=== PATIENT | male | born 1935 | race Caucasian/White ===

== ENCOUNTER 2016-10-29 10:27 | Outpatient (CLI) | payer MEDICARE ==
[2016-10-29 12:12] LABS: ALT (SGPT) 18 U/L (8-55); AST (SGOT) 17 U/L (5-34); Albumin 4.1 g/dL (3.4-4.8); Alkaline Phosphatase 85 U/L (40-150); Anion Gap 12 mmol/L (10-20); BUN (Urea Nitrogen) 18 mg/dL (8.4-25.7); Bilirubin, Total 0.8 mg/dL (0.2-1.2); Calc. Creatinine Clearance 0 mL/min (70-130); Calcium 9.2 mg/dL (7.8-10.44); Carbon Dioxide 27 mmol/L (23-31); Chloride 101 mmol/L (98-107); Estimated GFR-MDRD 70; Globulin 2.6 g/dL (2.4-3.5); Glucose 96 mg/dL (83-110); Potassium 3.9 mmol/L (3.5-5.1); Protein, Total 6.7 g/dL (5.8-8.1); Sodium 136 mmol/L (136-145)
[2016-10-29 12:13] LABS: #Basophils 0.1 thou/uL (0.0-0.2); #Eosinphils 0.1 thou/uL (0.0-0.7); #Lymphocytes 2.2 thou/uL (1.20-3.40); #Monocytes 0.5 thou/uL (0.11-0.59); #Neutrophils 4.1 thou/uL (1.40-6.50); %Eosinophils 1.5 % (0.0-10.0); %Lymphocytes 30.9 % (21.0-51.0); %Monocytes 7.7 % (0.0-10.0); %Neutrophils 58.9 % (42.0-75.0); Hemoglobin 14.4 g/dL (14.0-18.0); Mean Corpuscular HGB CONC 33.8 g/dL (32.0-36.0); Mean Corpuscular Volume 91.8 fl (80.0-94.0); Mean Platelet Volume 8.8 fL (7.4-10.4); Platelet Count 179 thou/uL (130-400); RBC Distribution Width 11.8 % (11.5-14.5); Red Blood Cell (RBC) Count 4.64 mill/uL (4.70-6.10); White Blood Cell (WBC) Count 6.9 thou/uL (4.8-10.8)
[2016-10-29 12:28] LABS: Thyroid Stimulating Hormone 2.7074 uIU/mL (0.35-4.94); Vitamin D, 25 Hydroxy 28.9 ng/mL (> 30.0)
[2016-10-29 18:22] LABS: Folate (Folic Acid) 11.6 ng/mL (7.0-31.4)
[2016-10-31 07:32] LABS: Antinuclear AB Negative (Negative)
== END 2016-10-29 10:28 | disposition home or self-care (01) ==
LOC: MADLAB 10:27
PROVIDERS: ATTEND Student in an Organized Health Care Education/Training Program
DX: E51.9 Thiamine deficiency, unspecified (principal); E55.9 Vitamin D deficiency, unspecified; E53.8 Deficiency of other specified B group vitamins; E53.1 Pyridoxine deficiency; R41.3 Other amnesia
CPT/HCPCS: 36415; 80053; 82306; 82607; 82746; 84207; 84425; 84443; 85025; 86038; 86592

== ENCOUNTER 2017-09-22 12:47 | Outpatient (CLI) | payer MEDICARE ==
--- NOTE | 2017-09-22 13:20 | RAD ---
LUMBAR SPINE THREE VIEWS: History: Trauma. Pain. Comparison: None. FINDINGS: Three views of the lumbar spine. Five lumbar type vertebral bodies. Vertebral body height is maintain ed. Disc space heights are preserved. Mild osteophyte formation. Atherosclerosis of the aorta is identified. IMPRESSION: Unremarkable lumbar spine three views. POS: [facility]
--- NOTE | 2017-09-22 13:54 | RAD ---
PROCEDURE: PA CHEST AND LEFT RIBS: A total of 4 views. INDICATION: Left chest pain and low back pain. COMPARISON: Comparison is made to a chest film of 08/09/14. Multiple tiny metallic fragments seen within the left chest wall appear unchanged and may represent b ullet fragments. The lung rodriguez are clear with no evidence of infiltrate or vascular congestion. Heart and mediastin um unremarkable with aortic calcification again noted. Review of the left ribs shows evidence of cortical irregularity involving the distal left 10th rib an terolaterally near the costochondral junction. A fracture at this site cannot be excluded. No other evidence of fracture. No other rib lesions seen. IMPRESSION: Question fracture distal left 10th rib. Recommend clinical correlation regarding tenderness at this site. POS: [facility]
== END 2017-09-22 12:48 | disposition home or self-care (01) ==
LOC: MADRAD 12:47
PROVIDERS: ATTEND Family Medicine
DX: M54.42 Lumbago with sciatica, left side (principal); R07.81 Pleurodynia
CPT/HCPCS: 72100

== ENCOUNTER 2020-12-20 | Emergency (ER) | payer MEDICARE ==
[2020-12-20 01:02] LABS: #Basophils 0.1 thou/uL (0.0-0.2); #Lymphocytes 1.4 thou/uL (1.20-3.40); #Neutrophils 13.6 thou/uL (1.40-6.50); %Basophils 0.5 % (0.0-1.0); %Eosinophils 0.1 % (0.0-10.0); %Lymphocytes 8.6 % (21.0-51.0); %Monocytes 6.4 % (0.0-10.0); %Neutrophils 84.4 % (42.0-75.0); Hemoglobin 16.2 g/dL (14.0-18.0); Mean Corpuscular HGB CONC 32.7 g/dL (32.0-36.0); Mean Corpuscular Volume 91.6 fL (78.0-98.0); Mean Platelet Volume 10.6 fL (7.4-10.4); Platelet Count 235 thou/uL (130-400); RBC Distribution Width 11.9 % (11.5-14.5); Red Blood Cell (RBC) Count 5.39 mill/uL (4.70-6.10); White Blood Cell (WBC) Count 16.1 thou/uL (4.8-10.8)
[2020-12-20 01:25] LABS: ALT (SGPT) 13 U/L (8-55); AST (SGOT) 18 U/L (5-34); Albumin 4.2 g/dL (3.4-4.8); Alkaline Phosphatase 97 U/L (40-110); Anion Gap 15 mmol/L (10-20); BUN (Urea Nitrogen) 21 mg/dL (8.4-25.7); Bilirubin, Total 1.2 mg/dL (0.2-1.2); CK (CPK) 95 U/L (30-200); CRP (Inflammatory) 0.57 mg/dL (= or < 0.5); Calc. Creatinine Clearance 0 mL/min (70-130); Calcium 9.4 mg/dL (7.8-10.44); Carbon Dioxide 18 mmol/L (23-31); Chloride 107 mmol/L (98-107); Globulin 3.3 g/dL (2.4-3.5); Glucose 159 mg/dL (83-110); Potassium 4.3 mmol/L (3.5-5.1); Protein, Total 7.5 g/dL (5.8-8.1); Sodium 136 mmol/L (136-145)
[2020-12-20 02:17] LABS: Bilirubin Negative (Negative); Blood, Urine Moderate (Negative); Clarity Clear (Clear); Glucose, Urine (Dipstick) 100 mg/dL (Negative); Ketone, Urine 15 mg/dL (Negative); Leukocyte Negative (Negative); Nitrite Negative (Negative); Protein, Urine (Dipstick) > or equal to 300 mg/dL (Neg-Trace); Urobilinogen 0.2 mg/dL (Less than 2); pH, Urine 5.5 (5.0-9.0)
[2020-12-20 02:20] LABS: Specific Gravity, Urine 1.025 (1.002-1.036)
[2020-12-20 02:23] LABS: Bacteria/HPF Rare-Few HPF (None Seen); Mucous/LPF 2+ LPF (<2+); Squamous Epithelial 0-3 HPF (0-3); WBC/HPF 0-3 HPF (0-3)
[2020-12-20] MEDS ORDERED: Aspirin Chewable 81 MG TAB ONE (03:21)
[2020-12-20] MEDS ORDERED: Cefepime 2 GM VIAL ONE ×2 (03:21→12:07)
[2020-12-20] MEDS ORDERED: metroNIDAZOLE 500 MG/100 ML BAG ONE ×2 (03:55→12:07)
[2020-12-20] MEDS ORDERED: Iopamidol 370 76% 100 ML VIAL ONE (11:26)
[2020-12-20] MEDS ORDERED: Sodium Chloride 0.9% 100 ML ONE (12:07)
== END 2020-12-20 13:22 | disposition short-term general hospital (02) ==
LOC: MADERS
DX: R14.0 Abdominal distension (gaseous) (principal); R10.9 Unspecified abdominal pain; N40.1 Benign prostatic hyperplasia with lower urinary tract symptoms; R79.89 Other specified abnormal findings of blood chemistry; R33.8 Other retention of urine; R39.11 Hesitancy of micturition; R53.1 Weakness; R41.82 Altered mental status, unspecified; R53.83 Other fatigue
CPT/HCPCS: 36415; 51702; 74177; 80053; 81003; 81015; 82150; 82550; 82553; 83690; 84484; 85025; 86140; 93005; 96365; 96366; 96367; J0692; J3490; Q9967

== ENCOUNTER 2021-01-13 13:18 | Emergency (ER) | payer MEDICARE ==
[2021-01-13 13:55] LABS: Bilirubin Negative (Negative); Blood, Urine Negative (Negative); Clarity Slightly Cloudy (Clear); Glucose, Urine (Dipstick) Negative (Negative); Ketone, Urine Trace mg/dL (Negative); Leukocyte Negative (Negative); Nitrite Positive (Negative); Protein, Urine (Dipstick) Trace mg/dL (Neg-Trace); Urobilinogen 0.2 mg/dL (Less than 2)
[2021-01-13 14:03] LABS: Bacteria/HPF 4+ HPF (None Seen); RBC/HPF 0-3 HPF (0-3); Squamous Epithelial None Seen HPF (0-3); WBC/HPF 0-3 HPF (0-3)
== END 2021-01-13 14:55 | disposition home or self-care (01) ==
LOC: MADERS 13:18
DX: N40.1 Benign prostatic hyperplasia with lower urinary tract symptoms (principal); R33.8 Other retention of urine; N39.0 Urinary tract infection, site not specified; Z46.6 Encounter for fitting and adjustment of urinary device; Z79.82 Long term (current) use of aspirin; Z79.899 Other long term (current) drug therapy
CPT/HCPCS: 51702; 81003; 81015; 87077; 87086; 87186

== ENCOUNTER 2021-10-12 09:03 | Emergency (ER) | payer MEDICARE ==
[2021-10-12 09:40] LABS: Bilirubin Small (Negative); Blood, Urine Moderate (Negative); Clarity Cloudy (Clear); Glucose, Urine (Dipstick) Negative (Negative); Ketone, Urine Trace mg/dL (Negative); Leukocyte Small (Negative); Nitrite Positive (Negative); Protein, Urine (Dipstick) 100 mg/dL (Neg-Trace); Specific Gravity, Urine 1.025 (1.002-1.036); Urobilinogen 0.2 mg/dL (Less than 2); pH, Urine 5.5 (5.0-9.0)
[2021-10-12 10:30] LABS: Bilirubin Negative (Negative); Blood, Urine Moderate (Negative); Clarity Cloudy (Clear); Glucose, Urine (Dipstick) Negative (Negative); Ketone, Urine Negative (Negative); Leukocyte Small (Negative); Nitrite Positive (Negative); Protein, Urine (Dipstick) 100 mg/dL (Neg-Trace); Specific Gravity, Urine 1.025 (1.005-1.030); Urobilinogen 0.2 mg/dL (Less than 2)
[2021-10-12 10:33] LABS: Squamous Epithelial 0-3 HPF (0-3)
[2021-10-12 10:34] LABS: Bacteria/HPF 3+ HPF (None Seen)
== END 2021-10-12 10:44 | disposition home or self-care (01) ==
LOC: MADERS 09:03
DX: N39.0 Urinary tract infection, site not specified (principal)
CPT/HCPCS: 81003; 81015; 87086

== ENCOUNTER 2022-03-06 13:48 | Emergency (ER) | payer MEDICARE ==
[~2022-03-06 13:48] MED LIST: Iopamidol 370 76% 125 ML VIAL FS ONE; Lactated Ringer's 1,000 ML BAG ONE; Norepinephrine 4 MG/4 ML VIAL ONE
[2022-03-06] MEDS ORDERED: Ondansetron PF 4 MG/2 ML Vial ONE (14:31)
[2022-03-06 14:54] LABS: Bicarbonate (HCO3v) 22.4 mmol/L (22.0-28.0); CO2 Tension (PvCO2) 44.4 mmHg (42.0-51.0); Calcium, Ionized 1.09 mmol/L (1.15-1.33); Chloride 106 mmol/L (98-107); Hemoglobin - Calc 14.6 g/dL (14.0-18.0); Potassium 2.8 mmol/L (3.5-5.1); Sodium 142 mmol/L (138-145); T. Carbon Dioxide 23.7 mmol/L (22.0-28.0); vO2 Saturation-calc 60.5 % (60.0-85.0)
[2022-03-06 14:59] LABS: Anisocytosis SLIGHT = 6-15 cells (100X) (0-5/hpf); Band 18 % (5-11); Hemoglobin 13.4 g/dL (14.0-18.0); Lymphocytes 20 % (21-51); MDiff Complete? YES; Mean Corpuscular HGB CONC 32.1 g/dL (32.0-36.0); Mean Corpuscular Hemoglobin 29.3 pg (27.0-31.0); Mean Corpuscular Volume 91.1 fL (78.0-98.0); Mean Platelet Volume 10.2 fL (7.4-10.4); Monocytes 2 % (0-10); Neutrophil 60 % (42-75); Platelet Count 165 thou/uL (130-400); Platelet Morphology Comment Appears Adequate; RBC Distribution Width 11.8 % (11.5-14.5); Red Blood Cell (RBC) Count 4.58 mill/uL (4.70-6.10); White Blood Cell (WBC) Count 3.5 thou/uL (4.8-10.8)
[2022-03-06 15:06] LABS: ALT (SGPT) 44 U/L (8-55); AST (SGOT) 70 U/L (5-34); Albumin 3.9 g/dL (3.4-4.8); Alkaline Phosphatase 123 U/L (40-110); Anion Gap 19 mmol/L (10-20); BUN (Urea Nitrogen) 24 mg/dL (8.4-25.7); Bilirubin, Total 1.3 mg/dL (0.2-1.2); CK (CPK) 51 U/L (30-200); Calc. Creatinine Clearance 0 mL/min (70-130); Calcium 9.2 mg/dL (7.8-10.44); Carbon Dioxide 20 mmol/L (23-31); Chloride 103 mmol/L (98-107); Estimated GFR 42; Glucose 126 mg/dL (83-110); Lipase 26 U/L (8-78); Magnesium 1.4 mg/dL (1.6-2.6); Potassium 3.1 mmol/L (3.5-5.1); Protein, Total 6.9 g/dL (5.8-8.1); Sodium 139 mmol/L (136-145)
[2022-03-06 15:07] LABS: INR-International Normal Ratio 1.2; Prothrombin Time 15.1 sec (12.0-14.7)
[2022-03-06] MEDS ORDERED: Norepinephrine 4 MG/4 ML VIAL ONE (15:09)
[2022-03-06] MEDS ORDERED: Magnesium 2 GM/50 ML BAG (IN WATER) ONE (15:10)
[2022-03-06 15:55] LABS: SARS-CoV-2 NAA Rapid Test Not Detected (NotDetected)
[2022-03-06] MEDS ORDERED: Sodium Chloride 0.9% 100 ML ONE (16:43)
[2022-03-06] MEDS ORDERED: Sodium Chloride 0.9% 250 ML 500 ML ONE (16:43)
[2022-03-06] MEDS ORDERED: Cefepime 2 GM VIAL ONE (16:43)
[2022-03-06] MEDS ORDERED: NS 0.9% w/ 40 MEQ KCL 1,000 ML IV ONE (16:46)
[2022-03-06] MEDS ORDERED: Enalaprilat Dihydrate 1.25 MG/ML VIAL ONE (16:49)
[2022-03-06] MEDS ORDERED: Ibuprofen 600 MG TAB ONE (16:53)
[2022-03-06] MEDS ORDERED: Ibuprofen 200 MG TAB ONE (16:54)
[2022-03-06] MEDS ORDERED: Vasopressin 20 UNIT, Admixture Fee 1 EACH in Sodium Chloride 0.9% 50 ML IV SCH (17:00)
[2022-03-06] MEDS ORDERED: Lactated Ringer's 1,000 ML IV SCH (17:00)
[2022-03-06] MEDS ORDERED: Pantoprazole 40 MG VIAL ONE (17:27)
[2022-03-06 17:32] LABS: Blood, Urine Large (Negative); Clarity Cloudy (Clear); Glucose, Urine (Dipstick) Negative (Negative); Ketone, Urine Negative (Negative); Leukocyte Trace (Negative); pH, Urine 6.5 (5.0-9.0)
[2022-03-06 17:38] LABS: Nitrite Unable to Interpret (Negative); Protein, Urine (Dipstick) Unable to Interpret mg/dL (Neg-Trace)
[2022-03-06 17:39] LABS: Bilirubin Unable to Interpret (Negative); Urobilinogen UNABLE TO INTERPRET mg/dL (Less than 2)
[2022-03-06 17:40] LABS: Bacteria/HPF 1+ HPF (None Seen); RBC/HPF Greater than 50 HPF (0-3)
[2022-03-06] MEDS ORDERED: Hydrocortisone Sod Succ/PF 100 mg/2 ml Vial ONE (17:50)
[2022-03-06] MEDS ORDERED: Water For Inject, Bacteriostat 30 ML ONE (17:52)
[2022-03-06 18:13] LABS: Lactic Acid 11.9 mmol/L (0.5-2.2)
== END 2022-03-06 17:56 | disposition short-term general hospital (02) ==
LOC: MADERS 13:48
DX: J69.0 Pneumonitis due to inhalation of food and vomit (principal); N39.0 Urinary tract infection, site not specified; R65.21 Severe sepsis with septic shock; K92.2 Gastrointestinal hemorrhage, unspecified; L02.211 Cutaneous abscess of abdominal wall; E87.6 Hypokalemia; E83.42 Hypomagnesemia; R31.9 Hematuria, unspecified; F03.90 Unspecified dementia, unspecified severity, without behavioral disturbance, psychotic disturbance, mood disturbance, and anxiety; Z20.822 Contact with and (suspected) exposure to COVID-19
CPT/HCPCS: 0240U; 36556; 70450; 71045; 71275; 74174; 74177; 82330; 82435; 82533; 82550; 82803; 82962; 83605; 83690; 83735; 83880; 84132; 84295; 84439; 84484; 85014; 85018; 85610; 85730; 86140; 86850; 86900; 86901; 87040; 87077; 87086; 87149 ×2; 87186; 93005; 94760; 96365; 96367; 96368; 96374; 96375; 99285; 36416; 80053; 81003; 81015; 82274; 84443; 85025; C9113; J0692; J1720; J2405; J3370; J3475; J3480; J3490; J7050; J7070; J7120; Q9967

== ENCOUNTER 2022-03-15 13:09 | Inpatient (IN) | payer MEDICARE ==
[2022-03-15 15:52] VITALS: BMI 23.6
[2022-03-15 18:43] LABS: Bilirubin Negative (Negative); Blood, Urine Trace (Negative); Clarity Clear (Clear); Glucose, Urine (Dipstick) Negative (Negative); Ketone, Urine 15 mg/dL (Negative); Leukocyte Negative (Negative); Nitrite Negative (Negative); Protein, Urine (Dipstick) 30 mg/dL (Neg-Trace); Urobilinogen 0.2 mg/dL (Less than 2)
[2022-03-15 19:04] LABS: Bacteria/HPF Rare-Few HPF (None Seen); Squamous Epithelial 0-3 HPF (0-3); WBC/HPF 0-3 HPF (0-3)
[2022-03-15] MEDS: Enoxaparin Sodium 40 MG/0.4 ML SYRINGE SC SCH (21:14)
[2022-03-15] MEDS: Atorvastatin Calcium 40 MG TAB PO SCH (21:14)
[2022-03-15] MEDS: Donepezil HCl 10 MG TAB PO SCH (21:14)
[2022-03-16] MEDS: Acyclovir 200 mg Capsule PO SCH ×6 (00:57→23:17)
[2022-03-16 05:48] LABS: Band 5 % (5-11); Eosinophils 1 % (0-10); Lymphocytes 36 % (21-51); MDiff Complete? YES; Mean Corpuscular HGB CONC 33.3 g/dL (32.0-36.0); Mean Corpuscular Hemoglobin 29.9 pg (27.0-31.0); Mean Corpuscular Volume 89.9 fL (78.0-98.0); Mean Platelet Volume 12.5 fL (7.4-10.4); Monocytes 6 % (0-10); Neutrophil 52 % (42-75); Platelet Count 190 thou/uL (130-400); Platelet Morphology Comment Appears Adequate; RBC Distribution Width 12.4 % (11.5-14.5); Red Blood Cell (RBC) Count 3.33 mill/uL (4.70-6.10); White Blood Cell (WBC) Count 8.2 thou/uL (4.8-10.8)
[2022-03-16 06:05] LABS: ALT (SGPT) 119 U/L (8-55); AST (SGOT) 51 U/L (5-34); Albumin 2.7 g/dL (3.4-4.8); Alkaline Phosphatase 189 U/L (40-110); Anion Gap 13 mmol/L (10-20); BUN (Urea Nitrogen) 21 mg/dL (8.4-25.7); Bilirubin, Total 1.3 mg/dL (0.2-1.2); Calc. Creatinine Clearance 63 mL/min (70-130); Carbon Dioxide 23 mmol/L (23-31); Chloride 110 mmol/L (98-107); Estimated GFR 84; Globulin 2.5 g/dL (2.4-3.5); Glucose 88 mg/dL (83-110); Potassium 3.7 mmol/L (3.5-5.1); Protein, Total 5.2 g/dL (5.8-8.1); Sodium 142 mmol/L (136-145)
[2022-03-16] MEDS: Amlodipine 5 MG TAB PO SCH (08:36)
[2022-03-16] MEDS: Finasteride 5 MG TAB PO SCH (08:36)
[2022-03-16] MEDS: Famotidine 20 MG TAB PO SCH (08:37)
[2022-03-16] MEDS: Aspirin Chewable 81 MG TAB PO SCH (08:37)
[2022-03-16] MEDS: Donepezil HCl 10 MG TAB PO SCH (20:03)
[2022-03-16] MEDS: Atorvastatin Calcium 40 MG TAB PO SCH (20:03)
[2022-03-16] MEDS: Enoxaparin Sodium 40 MG/0.4 ML SYRINGE SC SCH (20:03)
[2022-03-17] MEDS: Aspirin Chewable 81 MG TAB PO SCH (08:11)
[2022-03-17] MEDS: Amlodipine 5 MG TAB PO SCH (08:11)
[2022-03-17] MEDS: Famotidine 20 MG TAB PO SCH (08:11)
[2022-03-17] MEDS: Finasteride 5 MG TAB PO SCH (08:11)
[2022-03-17] MEDS: Acyclovir 200 mg Capsule PO SCH ×5 (08:11→23:17)
[2022-03-17] MEDS: Atorvastatin Calcium 40 MG TAB PO SCH (20:15)
[2022-03-17] MEDS: Enoxaparin Sodium 40 MG/0.4 ML SYRINGE SC SCH (20:16)
[2022-03-17] MEDS: Donepezil HCl 10 MG TAB PO SCH (20:16)
[2022-03-18] MEDS: Finasteride 5 MG TAB PO SCH (08:27)
[2022-03-18] MEDS: Acyclovir 200 mg Capsule PO SCH ×5 (08:27→23:31)
[2022-03-18] MEDS: Amlodipine 5 MG TAB PO SCH (08:27)
[2022-03-18] MEDS: Famotidine 20 MG TAB PO SCH (08:27)
[2022-03-18] MEDS: Aspirin Chewable 81 MG TAB PO SCH (08:27)
[2022-03-18] MEDS: Atorvastatin Calcium 40 MG TAB PO SCH (20:18)
[2022-03-18] MEDS: Enoxaparin Sodium 40 MG/0.4 ML SYRINGE SC SCH (20:18)
[2022-03-18] MEDS: Donepezil HCl 10 MG TAB PO SCH (20:18)
[2022-03-19] MEDS: Amlodipine 5 MG TAB PO SCH (08:05)
[2022-03-19] MEDS: Acyclovir 200 mg Capsule PO SCH ×5 (08:06→23:56)
[2022-03-19] MEDS: Finasteride 5 MG TAB PO SCH (08:06)
[2022-03-19] MEDS: Aspirin Chewable 81 MG TAB PO SCH (08:06)
[2022-03-19] MEDS: Famotidine 20 MG TAB PO SCH (08:06)
[2022-03-19] MEDS: Mirtazapine 15 MG TAB PO SCH (21:17)
[2022-03-19] MEDS: Atorvastatin Calcium 40 MG TAB PO SCH (21:17)
[2022-03-19] MEDS: Enoxaparin Sodium 40 MG/0.4 ML SYRINGE SC SCH (21:18)
[2022-03-19] MEDS: Donepezil HCl 10 MG TAB PO SCH (21:18)
[2022-03-20] MEDS: Amlodipine 5 MG TAB PO SCH (08:33)
[2022-03-20] MEDS: Finasteride 5 MG TAB PO SCH (08:34)
[2022-03-20] MEDS: Famotidine 20 MG TAB PO SCH (08:34)
[2022-03-20] MEDS: Aspirin Chewable 81 MG TAB PO SCH (08:34)
[2022-03-20] MEDS: Acyclovir 200 mg Capsule PO SCH ×4 (08:34→21:59)
[2022-03-20] MEDS: Atorvastatin Calcium 40 MG TAB PO SCH (21:58)
[2022-03-20] MEDS: Enoxaparin Sodium 40 MG/0.4 ML SYRINGE SC SCH (21:58)
[2022-03-20] MEDS: Mirtazapine 15 MG TAB PO SCH (21:58)
[2022-03-20] MEDS: Donepezil HCl 10 MG TAB PO SCH (21:58)
[2022-03-21] MEDS: Acyclovir 200 mg Capsule PO SCH ×6 (01:41→20:43)
[2022-03-21] MEDS: Finasteride 5 MG TAB PO SCH (08:52)
[2022-03-21] MEDS: Amlodipine 5 MG TAB PO SCH (08:52)
[2022-03-21] MEDS: Famotidine 20 MG TAB PO SCH (08:52)
[2022-03-21] MEDS: Aspirin Chewable 81 MG TAB PO SCH (08:52)
[2022-03-21] MEDS: Donepezil HCl 10 MG TAB PO SCH (20:42)
[2022-03-21] MEDS: Atorvastatin Calcium 40 MG TAB PO SCH (20:42)
[2022-03-21] MEDS: Enoxaparin Sodium 40 MG/0.4 ML SYRINGE SC SCH (20:42)
[2022-03-21] MEDS: Mirtazapine 15 MG TAB PO SCH (20:43)
[2022-03-22 07:44] LABS: #Basophils 0.1 thou/uL (0.0-0.2); #Eosinphils 0.1 thou/uL (0.0-0.7); #Lymphocytes 2.8 thou/uL (1.20-3.40); #Monocytes 0.7 thou/uL (0.11-0.59); #Neutrophils 3.2 thou/uL (1.40-6.50); %Basophils 1.1 % (0.0-1.0); %Eosinophils 0.9 % (0.0-10.0); %Lymphocytes 41.3 % (21.0-51.0); %Monocytes 10.5 % (0.0-10.0); %Neutrophils 46.2 % (42.0-75.0); Hemoglobin 9.6 g/dL (14.0-18.0); Mean Corpuscular HGB CONC 32.5 g/dL (32.0-36.0); Mean Corpuscular Hemoglobin 29.7 pg (27.0-31.0); Mean Corpuscular Volume 91.5 fL (78.0-98.0); Mean Platelet Volume 10.7 fL (7.4-10.4); Platelet Count 345 thou/uL (130-400); RBC Distribution Width 12.6 % (11.5-14.5); Red Blood Cell (RBC) Count 3.24 mill/uL (4.70-6.10); White Blood Cell (WBC) Count 6.9 thou/uL (4.8-10.8)
[2022-03-22] MEDS: Amlodipine 5 MG TAB PO SCH (09:42)
[2022-03-22] MEDS: Finasteride 5 MG TAB PO SCH (09:42)
[2022-03-22] MEDS: Famotidine 20 MG TAB PO SCH (09:42)
[2022-03-22] MEDS: Aspirin Chewable 81 MG TAB PO SCH (09:42)
[2022-03-22] MEDS: Acyclovir 200 mg Capsule PO SCH ×4 (09:42→21:29)
[2022-03-22] MEDS ORDERED: Dextrose 50% Abboject 50 ML SYRINGE IVP PRN (09:45)
[2022-03-22] MEDS ORDERED: Dextrose 5% in Water 1,000 ML IV PRN (09:45)
[2022-03-22] MEDS ORDERED: HumaLOG 300 UNITS/3 ML VIAL SC PRN ×2 (09:45)
[2022-03-22] MEDS: Enoxaparin Sodium 40 MG/0.4 ML SYRINGE SC SCH (21:28)
[2022-03-22] MEDS: Atorvastatin Calcium 40 MG TAB PO SCH (21:29)
[2022-03-22] MEDS: Donepezil HCl 10 MG TAB PO SCH (21:29)
[2022-03-22] MEDS: Mirtazapine 15 MG TAB PO SCH (21:29)
[2022-03-23] MEDS: Acyclovir 200 mg Capsule PO SCH (00:21)
[2022-03-23] MEDS: Aspirin Chewable 81 MG TAB PO SCH (08:29)
[2022-03-23] MEDS: Famotidine 20 MG TAB PO SCH (08:29)
[2022-03-23] MEDS: Finasteride 5 MG TAB PO SCH (08:29)
[2022-03-23] MEDS: Amlodipine 5 MG TAB PO SCH (08:29)
[2022-03-23] MEDS: Acetaminophen 325 MG TAB PO PRN (10:45)
[2022-03-23] MEDS: Atorvastatin Calcium 40 MG TAB PO SCH (20:51)
[2022-03-23] MEDS: Mirtazapine 15 MG TAB PO SCH (20:51)
[2022-03-23] MEDS: Donepezil HCl 10 MG TAB PO SCH (20:51)
[2022-03-23] MEDS: Enoxaparin Sodium 40 MG/0.4 ML SYRINGE SC SCH (20:52)
[2022-03-24] MEDS: Aspirin Chewable 81 MG TAB PO SCH (08:57)
[2022-03-24] MEDS: Finasteride 5 MG TAB PO SCH (08:57)
[2022-03-24] MEDS: Famotidine 20 MG TAB PO SCH (08:57)
[2022-03-24] MEDS: Acetaminophen 325 MG TAB PO PRN (08:57)
[2022-03-24] MEDS: Amlodipine 5 MG TAB PO SCH (09:05)
[2022-03-24] MEDS: Mirtazapine 15 MG TAB PO SCH (21:27)
[2022-03-24] MEDS: Donepezil HCl 10 MG TAB PO SCH (21:27)
[2022-03-24] MEDS: Enoxaparin Sodium 40 MG/0.4 ML SYRINGE SC SCH (21:27)
[2022-03-24] MEDS: Atorvastatin Calcium 40 MG TAB PO SCH (21:27)
[2022-03-25] MEDS: Finasteride 5 MG TAB PO SCH (08:39)
[2022-03-25] MEDS: Aspirin Chewable 81 MG TAB PO SCH (08:40)
[2022-03-25] MEDS: Amlodipine 5 MG TAB PO SCH (08:40)
[2022-03-25] MEDS: Famotidine 20 MG TAB PO SCH (08:45)
[2022-03-25] MEDS: Donepezil HCl 10 MG TAB PO SCH (21:26)
[2022-03-25] MEDS: Mirtazapine 15 MG TAB PO SCH (21:26)
[2022-03-25] MEDS: Enoxaparin Sodium 40 MG/0.4 ML SYRINGE SC SCH (21:28)
[2022-03-25] MEDS: Atorvastatin Calcium 40 MG TAB PO SCH (21:29)
[2022-03-26] MEDS: Famotidine 20 MG TAB PO SCH (08:27)
[2022-03-26] MEDS: Finasteride 5 MG TAB PO SCH (08:27)
[2022-03-26] MEDS: Aspirin Chewable 81 MG TAB PO SCH (08:27)
[2022-03-26] MEDS: Amlodipine 5 MG TAB PO SCH (08:27)
[2022-03-26] MEDS ORDERED: Milk Of Magnesia 30 ML UDCUP PO SCH (19:45)
[2022-03-26] MEDS: Mirtazapine 15 MG TAB PO SCH (20:40)
[2022-03-26] MEDS: Donepezil HCl 10 MG TAB PO SCH (20:40)
[2022-03-26] MEDS: Atorvastatin Calcium 40 MG TAB PO SCH (20:40)
[2022-03-26] MEDS: Melatonin 3 MG TAB PO PRN (20:41)
[2022-03-26] MEDS: Enoxaparin Sodium 40 MG/0.4 ML SYRINGE SC SCH (20:42)
[2022-03-26] MEDS: Nystatin Cream 15 GM TUBE TOP SCH (20:42)
[2022-03-27] MEDS: Amlodipine 5 MG TAB PO SCH (09:00)
[2022-03-27] MEDS: Famotidine 20 MG TAB PO SCH (09:00)
[2022-03-27] MEDS: Finasteride 5 MG TAB PO SCH (09:00)
[2022-03-27] MEDS: Docusate 100 MG CAP PO SCH (09:00)
[2022-03-27] MEDS: Aspirin Chewable 81 MG TAB PO SCH (09:00)
[2022-03-27] MEDS: Nystatin Cream 15 GM TUBE TOP SCH ×2 (09:07→21:13)
[2022-03-27] MEDS: Enoxaparin Sodium 40 MG/0.4 ML SYRINGE SC SCH (21:13)
[2022-03-27] MEDS: Mirtazapine 15 MG TAB PO SCH (21:14)
[2022-03-27] MEDS: Atorvastatin Calcium 40 MG TAB PO SCH (21:14)
[2022-03-27] MEDS: Donepezil HCl 10 MG TAB PO SCH (21:14)
[2022-03-28] MEDS: Aspirin Chewable 81 MG TAB PO SCH (08:15)
[2022-03-28] MEDS: Amlodipine 5 MG TAB PO SCH (08:15)
[2022-03-28] MEDS: Finasteride 5 MG TAB PO SCH (08:15)
[2022-03-28] MEDS: Famotidine 20 MG TAB PO SCH (08:15)
[2022-03-28] MEDS: Nystatin Cream 15 GM TUBE TOP SCH ×2 (08:16→21:07)
[2022-03-28] MEDS: Docusate 100 MG CAP PO SCH (08:16)
[2022-03-28] MEDS: Donepezil HCl 10 MG TAB PO SCH (21:06)
[2022-03-28] MEDS: Melatonin 3 MG TAB PO PRN (21:06)
[2022-03-28] MEDS: Enoxaparin Sodium 40 MG/0.4 ML SYRINGE SC SCH (21:06)
[2022-03-28] MEDS: Atorvastatin Calcium 40 MG TAB PO SCH (21:06)
[2022-03-28] MEDS: Mirtazapine 15 MG TAB PO SCH (21:06)
[2022-03-29] MEDS: Finasteride 5 MG TAB PO SCH (08:05)
[2022-03-29] MEDS: Amlodipine 5 MG TAB PO SCH (08:06)
[2022-03-29] MEDS: Docusate 100 MG CAP PO SCH (08:06)
[2022-03-29] MEDS: Aspirin Chewable 81 MG TAB PO SCH (08:06)
[2022-03-29] MEDS: Milk Of Magnesia 30 ML UDCUP PO PRN (08:06)
[2022-03-29] MEDS: Famotidine 20 MG TAB PO SCH (08:06)
[2022-03-29] MEDS: Nystatin Cream 15 GM TUBE TOP SCH ×2 (08:09→21:35)
[2022-03-29] MEDS ORDERED: Polyethylene Glycol 3350 17 GM Packet PO PRN (18:29)
[2022-03-29] MEDS ORDERED: Lantiseptic Ointment 130 GM JAR TOP PRN (20:20)
[2022-03-29] MEDS: Enoxaparin Sodium 40 MG/0.4 ML SYRINGE SC SCH (21:23)
[2022-03-29] MEDS: Mirtazapine 15 MG TAB PO SCH (21:24)
[2022-03-29] MEDS: Melatonin 3 MG TAB PO PRN (21:25)
[2022-03-29] MEDS: Donepezil HCl 10 MG TAB PO SCH (21:25)
[2022-03-29] MEDS: Atorvastatin Calcium 40 MG TAB PO SCH (21:25)
[2022-03-30] MEDS: Milk Of Magnesia 30 ML UDCUP PO PRN (08:28)
[2022-03-30] MEDS: Finasteride 5 MG TAB PO SCH (08:28)
[2022-03-30] MEDS: Nystatin Cream 15 GM TUBE TOP SCH ×2 (08:28→21:05)
[2022-03-30] MEDS: Famotidine 20 MG TAB PO SCH (08:28)
[2022-03-30] MEDS: Amlodipine 5 MG TAB PO SCH (08:28)
[2022-03-30] MEDS: Docusate 100 MG CAP PO SCH (08:28)
[2022-03-30] MEDS: Aspirin Chewable 81 MG TAB PO SCH (08:28)
[2022-03-30] MEDS: Atorvastatin Calcium 40 MG TAB PO SCH (21:02)
[2022-03-30] MEDS: Mirtazapine 15 MG TAB PO SCH (21:02)
[2022-03-30] MEDS: Donepezil HCl 10 MG TAB PO SCH (21:03)
[2022-03-30] MEDS: Enoxaparin Sodium 40 MG/0.4 ML SYRINGE SC SCH (21:03)
[2022-03-31] MEDS: Finasteride 5 MG TAB PO SCH (08:39)
[2022-03-31] MEDS: Docusate 100 MG CAP PO SCH (08:39)
[2022-03-31] MEDS: Amlodipine 5 MG TAB PO SCH (08:39)
[2022-03-31] MEDS: Aspirin Chewable 81 MG TAB PO SCH (08:39)
[2022-03-31] MEDS: Famotidine 20 MG TAB PO SCH (08:39)
[2022-03-31] MEDS: Nystatin Cream 15 GM TUBE TOP SCH ×2 (08:40→21:50)
[2022-03-31] MEDS: Enoxaparin Sodium 40 MG/0.4 ML SYRINGE SC SCH (21:49)
[2022-03-31] MEDS: Donepezil HCl 10 MG TAB PO SCH (21:49)
[2022-03-31] MEDS: Mirtazapine 15 MG TAB PO SCH (21:49)
[2022-03-31] MEDS: Atorvastatin Calcium 40 MG TAB PO SCH (21:49)
[2022-04-01 05:19] LABS: #Basophils 0.1 thou/uL (0.0-0.2); #Eosinphils 0.6 thou/uL (0.0-0.7); #Lymphocytes 2.8 thou/uL (1.20-3.40); #Monocytes 0.9 thou/uL (0.11-0.59); #Neutrophils 4.1 thou/uL (1.40-6.50); %Eosinophils 6.9 % (0.0-10.0); %Lymphocytes 32.8 % (21.0-51.0); %Monocytes 10.8 % (0.0-10.0); %Neutrophils 48.5 % (42.0-75.0); Hemoglobin 10.8 g/dL (14.0-18.0); Mean Corpuscular HGB CONC 33.4 g/dL (32.0-36.0); Mean Corpuscular Hemoglobin 31.3 pg (27.0-31.0); Mean Corpuscular Volume 93.7 fL (78.0-98.0); Mean Platelet Volume 10.4 fL (7.4-10.4); Platelet Count 207 thou/uL (130-400); RBC Distribution Width 12.9 % (11.5-14.5); Red Blood Cell (RBC) Count 3.44 mill/uL (4.70-6.10); White Blood Cell (WBC) Count 8.5 thou/uL (4.8-10.8)
[2022-04-01 05:41] LABS: ALT (SGPT) 27 U/L (8-55); AST (SGOT) 20 U/L (5-34); Albumin 3.2 g/dL (3.4-4.8); Alkaline Phosphatase 100 U/L (40-110); Anion Gap 13 mmol/L (10-20); BUN (Urea Nitrogen) 19 mg/dL (8.4-25.7); Bilirubin, Total 0.5 mg/dL (0.2-1.2); Calc. Creatinine Clearance 60 mL/min (70-130); Calcium 8.7 mg/dL (7.8-10.44); Carbon Dioxide 22 mmol/L (23-31); Chloride 108 mmol/L (98-107); Estimated GFR 84; Glucose 88 mg/dL (83-110); Potassium 3.9 mmol/L (3.5-5.1); Protein, Total 6.2 g/dL (5.8-8.1); Sodium 139 mmol/L (136-145)
[2022-04-01] MEDS: Amlodipine 5 MG TAB PO SCH (08:20)
[2022-04-01] MEDS: Finasteride 5 MG TAB PO SCH (08:20)
[2022-04-01] MEDS: Aspirin Chewable 81 MG TAB PO SCH (08:20)
[2022-04-01] MEDS: Docusate 100 MG CAP PO SCH (08:20)
[2022-04-01] MEDS: Famotidine 20 MG TAB PO SCH (08:20)
[2022-04-01] MEDS: Nystatin Cream 15 GM TUBE TOP SCH ×2 (08:21→20:25)
[2022-04-01] MEDS: Donepezil HCl 10 MG TAB PO SCH (20:24)
[2022-04-01] MEDS: Mirtazapine 15 MG TAB PO SCH (20:24)
[2022-04-01] MEDS: Enoxaparin Sodium 40 MG/0.4 ML SYRINGE SC SCH (20:24)
[2022-04-01] MEDS: Atorvastatin Calcium 40 MG TAB PO SCH (20:24)
[2022-04-02] MEDS: Amlodipine 5 MG TAB PO SCH (09:14)
[2022-04-02] MEDS: Aspirin Chewable 81 MG TAB PO SCH (09:15)
[2022-04-02] MEDS: Finasteride 5 MG TAB PO SCH (09:15)
[2022-04-02] MEDS: Docusate 100 MG CAP PO SCH (09:15)
[2022-04-02 09:16] VITALS: BP 130/80
[2022-04-02] MEDS: Famotidine 20 MG TAB PO SCH (09:16)
[2022-04-02] MEDS: Nystatin Cream 15 GM TUBE TOP SCH (09:16)
[2022-04-02 09:45] VITALS: TEMP 98
== END 2022-04-02 16:25 | disposition home health service (06) | DRG 948 ==
LOC: MADMS 14:17
PROVIDERS: ADMIT Family Medicine; ATTEND Family Medicine
DX: R53.81 Other malaise (principal); R53.1 Weakness; Z20.822 Contact with and (suspected) exposure to COVID-19; I10 Essential (primary) hypertension; I48.91 Unspecified atrial fibrillation; N40.1 Benign prostatic hyperplasia with lower urinary tract symptoms; K80.20 Calculus of gallbladder without cholecystitis without obstruction; R33.8 Other retention of urine; R74.01 Elevation of levels of liver transaminase levels; B00.1 Herpesviral vesicular dermatitis; D64.9 Anemia, unspecified; G30.0 Alzheimer's disease with early onset; F02.80 Dementia in other diseases classified elsewhere, unspecified severity, without behavioral disturbance, psychotic disturbance, mood disturbance, and anxiety; E78.5 Hyperlipidemia, unspecified; Z87.440 Personal history of urinary (tract) infections; Z79.82 Long term (current) use of aspirin; Z79.899 Other long term (current) drug therapy; Z90.49 Acquired absence of other specified parts of digestive tract; Z90.81 Acquired absence of spleen
CPT/HCPCS: 36415; 36416; 80053; 81001; 85025; 87086; 87811; J1650; U0003; U0005